=== PATIENT | female | born 2000 | race American Indian/Alaskan Native ===

== ENCOUNTER 2025-04-19 10:25 | Outpatient (AMB) | payer MEDICAID, SELFPAY ==
[2025-04-19 11:03] VITALS: BP 107/71; PULSE 96; RESP 18; TEMP 36.7; O2SAT 99; BMI 31.6
--- NOTE | 2025-04-19 11:03 | OBCLNT_ITS ---
Vital Signs 04/19/25 11:03 Height 1.57 m Height Method Stated Weight 78.585 kg Weight Measurement Method Standing Scale BMI 31.6 BP 107/71 Blood Pressure Source Automatic Cuff Blood Pressure Location Left Upper Arm Position Sitting Respiration 18 Pulse 96 Pulse Source Monitor Temp 98.0 F Temp Source Oral Pulse Oximetry (%) 99 Oxygen Delivery Method Room Air Allergies/Home Meds Allergies & Medications Allergies No Known Allergies Allergy (Verified 04/19/25 11:04) Medication Reconciliation ampicillin 500 mg capsule 500 mg PO TID 7 days #21 caps 04/19/25 [Rx] vitamins-iron fumarate 66 mg iron-folic acid 1 mg tablet tab PO 04/19/25 [History Confirmed 04/19/25] Immunizations Immunizations Flu Vaccine in the Last 12 Months: No Flu Vaccine Exclusion Criteria: Refused by Patient Care OB Visit Log OB Flowsheet Initial Weight: Not Recorded Date -?-?-?-?-?-?-?-?-?-?-?-?- EGA Weight BP Alb Glu CTX Pres Fundal ht FHR Mov Dilation Station Effacement Hx Notes Visit Note 03/11/25 -?-?-?-?-?-?-?-?-?-?-?-?- 16w 2d 78.528 kg 106/71 absent unknown 17 135 active 24-year-old for OBI. Patient is unsure of her last. She thinks maybe November 17, 2024. This would give a due date August 23, 2025. She denies any second trimester discomforts. She reports movement. Denies leaking, bleeding, contractions. OBI today. Mp ordaz M appointment for dating and growth at [facility]. OB panel today with NIPT and AFP and A1c. Discussed SAB precautions. Increase fluids. Continue prenatals and return in 4 weeks OB to 04/19/25 -?-?-?-?-?-?-?-?-?-?-?-?- 21w 6d 78.585 kg 107/71 absent unknown 21 145 active Reports good movement. Denies leaking or bleeding. No contractions. Patient has a MFM appointment for May 03 Disc ussed labs. Ampicillin 500 p.o. twice daily x 7 for GBS positive in the urine. Discussed labor precautions. Follow-up with MFM April 13. Return in 4 weeks OB check ALESHA Calculator Estimated Delivery Date Method Current WG Current Estimate 08/24/25 LMP (Uncertain) 21w 6d Notes Visit Date: 04/19/25 Last Updated by: Eleanor Reyes CNM rub NI, O+,abs-, rpr;;nr, Hbsag-,HC-,HIV-, GC/CT-/, Urine GBS+/ampicillin, NIPT-/male,sma-, A1: 5.2 Visit Date: 03/11/25 Last Updated by: Eleanor Reyes CNM 24 yo . LMP 11/17/24?. EDC: 08/23/24 Office Procedures [facility] Clinic LOC & Office Proc's Nursing/Assessment Patient Status: Established Patient OB Clinic Nursing Assessment: Medication Reconciliation, Update PMH in EMR and Vital Signs OB Clinic Coordination of Care: Complex Care and Chronic Disease 1-5, Consent,records obtained, informed consent, Education Simp Pt/Fam, 1 Ins Authorization, Lab and Imaging orders, Results/Orders obtained and Staff clarify orders Special Needs: Heart tones Established Patient Charge Established Patient Point Assignment: 150 Established Patient Point Charge: EP Level 4 (120-155) Assessment & Plan Diagnosis / Problem List (1) Encounter for supervision of high risk in second trimester, antepartum: Status: Acute Plan Ampicillin 500 p.o. twice daily for UTI. Increase fluids. Keep appointment with maternal- medicine May 03. Discussed labor precautions. Return in 4 weeks OB check Additional Plan Follow Up: 4 Weeks (obc)
== END 2025-04-19 12:07 | disposition home or self-care (01) ==
LOC: HODSOBC 10:25
PROVIDERS: Supervising Provider Advanced Practice Midwife; Visit Provider Advanced Practice Midwife
DX: O09.892 Supervision of other high risk pregnancies, second trimester (principal); O23.42 Unspecified infection of urinary tract in pregnancy, second trimester; B95.1 Streptococcus, group B, as the cause of diseases classified elsewhere; Z3A.21 21 weeks gestation of pregnancy; Z28.21 Immunization not carried out because of patient refusal
CPT/HCPCS: 99214; G0463